=== PATIENT | female | born 1980 | race Caucasian/White ===

== ENCOUNTER 2020-01-27 05:35 | Emergency (ER) | payer OTHER ==
[~2020-01-27] VITALS: Ht 160 cm; Wt 90.7 kg
[2020-01-27] MEDS ORDERED: ORTHO MICRONO0.35 MG PO (05:57)
[2020-01-27] MEDS ORDERED: TRAZODONE HCL50 MG PO (05:58)
--- NOTE | 2020-01-27 06:55 | EKG ---
[facility] [address] [place], [place] [address] Signed Sinus tachycardia Cannot rule out Anterior infarct , age undetermined Abnormal ECG No previous ECGs available Confirmed by SAHIL MAYFIELD MD ([id number]) on 01/27/2020 6:55:43 AM Electronically Signed By: SAHIL MAYFIELD MD 01/27/20 0655 PATIENT NAME: ZEUS SALGADO ROMAIN Electrocardiogram DATE OF : 80 PHYSICIAN: SAHIL MAYFIELD MD REPORT #: [id number] REPORT IS CONFIDENTIAL AND NOT TO BE RELEASED WITHOUT AUTHORIZATION
[2020-01-27] MEDS ORDERED: VENTOLIN HFA18 GM INH (08:45)
[2020-01-27] MEDS ORDERED: ZYRTEC-D TABLE1 EACH PO (08:45)
== END 2020-01-27 08:58 | disposition home or self-care (01) ==
LOC: ED 05:35
DX: R07.9 Chest pain, unspecified (principal); R11.2 Nausea with vomiting, unspecified; I10 Essential (primary) hypertension; F32.9 Major depressive disorder, single episode, unspecified; Z79.899 Other long term (current) drug therapy
CPT/HCPCS: 71045; 71260; 80053; 83735; 84484; 85025; 93005; 93010; 99285-25; J2270; J2405; Q9967